=== PATIENT | male | born 1990 | race Caucasian/White ===

== ENCOUNTER 2020-08-05 14:49 | Emergency (ER) | payer OTHER ==
[2020-08-05 14:55] VITALS: BP 166/99
--- NOTE | 2020-08-05 15:07 | NUR ---
Spoke with poison control, who stated the Anel Shield vaccine is a killed virus and there is no risk for an infectious process or systemic adverse effects.
--- NOTE | 2020-08-05 15:24 | ED General ---
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 The syringe contained a cattle vaccine Anel Shield 6+. Patient is unsure if he got any of the medicine injected in his hand or not. Is having some mild swelling and pain on R hand where he was poked. Nursing Sepsis Screen: No Definite Risk History of Present Illness Date Seen by Provider: Aug 05, 2020 Time Seen by Provider: 15:04 Initial Comments Patient is a 29-year-old male who presents to the emergency department today with a chief complaint of injury to the right hand. Patient states that he was "working calves" when as he was holding a calf in a chute and the needle he was holding with medication and it for the calf came back and hit him in the hand. This injection contained a medication called virus shield 6. This contained bovine rhino tracheitis virus, parainfluenza 3 and respiratory syncytial virus vaccine as well as 3 other antibiotics. Nursing staff called poison control and discovered that this is a killed virus and has no toxic effects on human systems. He is complaining of hand pain over the dorsum of his fourth and fifth fingers. No other complaints of illness or injury. All other review of systems reviewed and negative except as stated. Timing/Duration: 1 Hour Associated Systoms: Denies Symptoms Allergies and Home Medications Allergies Coded Allergies: No Known Drug Allergies (Unverified , 08/05/20) Patient Home Medication List Home Medication List Reviewed: Yes Review of Systems Review of Systems Constitutional: no symptoms reported EENTM: no symptoms reported Respiratory: no symptoms reported Cardiovascular: no symptoms reported Gastrointestinal: no symptoms reported Musculoskeletal: joint swelling (puncture wound) Skin: other Psychiatric/Neurological: No Symptoms Reported All Other Systems Reviewed Negative Unless Noted: Yes Past Vnaijxu-Svqvxi-Pjsitc Hx Patient Social History Alcohol Use: Denies Use Recreational Drug Use: No Smoking Status: Current Everyday Smoker Type Used: Smokeless Tobacco 2nd Hand Smoke Exposure: No Recent Foreign Travel: No Contact w/Someone Who Travel: No Recent Infectious Disease Expo: No Recent Hopitalizations: No Physical Abuse: No Sexual Abuse: No Mistreated: No Fear: No Seasonal Allergies Seasonal Allergies: No Past Medical History Surgeries: Yes Gallbladder Respiratory: No Cardiac: No Neurological: Yes Seizure Disorder Genitourinary: No Gastrointestinal: No Musculoskeletal: No Endocrine: No HEENT: No Cancer: No Psychosocial: No Integumentary: No Blood Disorders: No Adverse Reaction/Blood Tranf: No Physical Exam Vital Signs Vital Signs - First Documented 08/05/20 14:55 Temp 35.8 Pulse 99 Resp 16 B/P (MAP) 166/99 (121) Pulse Ox 99 Capillary Refill : Less Than 3 Seconds Height, Weight, BMI Height: '" Weight: lbs. oz. kg; BMI Method: General Appearance: No Apparent Distress, WD/WN Respiratory: Normal Breath Sounds, No Respiratory Distress Cardiovascular: Regular Rate, Rhythm Extremity: Normal Capillary Refill, Swelling (Swelling noted over the dorsum of the right hand, primarily over the third fourth and fifth metacarpals. Patient also has a small puncture wound noted to the dorsal medial aspect of the mid point of the fifth metacarpal, no active bleeding.), Other (Pain with range of motion of the fourth and fifth digits specifically with flexion) Neurologic/Psychiatric: Alert, Oriented x3, No Motor/Sensory Deficits, Normal Mood/Affect Skin: Normal Color, Warm/Dry Progress/Results/Core Measures Suspected Sepsis Recent Fever Within 48 Hours: No Infection Criteria Present: None New/Unexplained Altered Menta: No Sepsis Screen: No Definite Risk SIRS Temperature: Pulse: 99 Respiratory Rate: 16 Blood Pressure 166 /99 Mean: 121 Results/Orders My Orders Vital Signs/I&O Capillary Refill : Less Than 3 Seconds Blood Pressure Mean: 121 Progress Note : Time: 15:25 Departure Impression Primary Impression: Contusion of hand, right Qualified Codes: S60.221A - Contusion of right hand, initial encounter Additional Impression: Puncture wound of hand, right Qualified Codes: S61.431A - Puncture wound without foreign body of right hand, initial encounter Disposition: 01 HOME, SELF-CARE Condition: Stable Departure-Patient Inst. Decision time for Depature: 15:30 Patient Instructions: Contusion (DC) Add. Discharge Instructions: Keep the wound area where your hand was punctured clean and dry. Wash vigorously with soap and water and monitor for signs of infection. If you have any increased redness, swelling, drainage from the wound please come back to the emergency room for reevaluation or follow-up with your primary care doctor. We have updated your tetanus today. Use ice to control the swelling in your right hand. You can take [id number] ibuprofen as needed for pain. All discharge instructions reviewed with patient and/or family. Voiced understanding. DARRELL FELIZ MD Aug 05, 2020 15:24
--- NOTE | 2020-08-05 15:28 | Diagnostic Imaging Report ---
EXAMINATION: Right hand radiographs, 3 views. COMPARISON: None. HISTORY: 29-year-old male, hit hand on cattle gate. Right hand pain. FINDINGS: There is no identified acute fracture. There is no radiopaque foreign body. There is unremarkable bone marrow mineralization and alignment. IMPRESSION: No identified acute bony abnormality of the right hand. Dictated by: Dictated on workstation # [id number]
[2020-08-05] MEDS ORDERED: TETANUS,DIPTH,PERTUSS P/F (BOOSTRIX) 0.5 ML VIAL IM ONE (15:30)
== END 2020-08-05 15:46 | disposition home or self-care (01) ==
LOC: ER FS 14:51
DX: S60.221A Contusion of right hand, initial encounter (principal); S61.431A Puncture wound without foreign body of right hand, initial encounter; F17.290 Nicotine dependence, other tobacco product, uncomplicated; Z23 Encounter for immunization; W22.8XXA Striking against or struck by other objects, initial encounter
CPT/HCPCS: 73130; 90715